=== PATIENT | female | born 2005 | race American Indian/Alaskan Native ===

== ENCOUNTER 2024-11-10 16:50 | Emergency (ER) | payer BC, SELFPAY ==
[2024-11-10 17:00] VITALS: BP 117/76; PULSE 77; RESP 16; TEMP 36.5; O2SAT 94; BMI 25.0
[2024-11-10 17:41] LABS: Appearance Urine Clear (Clear); Bilirubin Urine 1+ (Negative); Blood Urine Trace-intact (Negative); Color Urine Yellow (Yellow); Glucose Urine Negative (Negative); Ketones Urine 1+ (Negative); Leukocyte Esterase Urine Negative (Negative); Nitrite Urine Negative (Negative); Protein Urine 2+ (Negative); Specific Gravity Urine >= 1.030 (1.000-1.030)
[2024-11-10 17:48] LABS: RBC Urine 0-2 (0-2)
[2024-11-10 17:49] LABS: Bacteria Urine Moderate; Squamous Epithelial Cell Urine Moderate (None-Few)
--- OUTSIDE RECORDS SUMMARY | 2024-11-10 19:22 | XMS_ITS | Encounter Summary ---
Author Organization [facility] Address [address], [place] [address] Care Team Providers Care Supervisor Hospitality House Name Role Phone Deshawn Hart PA-C Primary Care Provider [phone] Reason for Visit * Reason Comments IUD Removal Yeast infections layo r since IUD was placed Encounter Details Date Type Department Care Team (Latest Contact Info) Description 10/09/2024 11:45 AM BENCH WORKER Office Visit [place] 1515 Obstetrics/Gynecolog y 1515 [facility]. [place], [place] [id number] Nancy Garces MD 15[address] [facility] [address] [place] [address] Encounter for IUD removal (Primary Dx); OCP (oral contraceptive pills) initiation Social History Tobacco Use Types Packs/Day Years Used Date Smoking Tobacco: Every Day Cigarettes Other - See comments Passive Smoke Exposure: Never Smokeless Tobacco: Never Tobacco Cessation:Ready to Q uit: Not Asked; Counseling Given: Not Answered Alcohol Use Standard Drinks/Week Comments Yes 0 (1 standard drink = 0.6 oz pur e alcohol) occ AUDIT-C Answer Date Recorded Q1: How often do you have a drink containing alc ohol? Never 03/19/2020 Average Number of Drinks Not on file 020 Frequency of Binge Drinking Not on file 03/06 Comments No Sex and Gender Information Value Date Recorded Sex Assigned at Female 08/16/2024 5:16 PM BENCH WORKER Legal Sex Female 8:05 PM CDT Gender Identity Female 08/16/2024 5:16 PM BENCH WORKER Sexual Orientation Straight 08/16/2024 5: 16 PM BENCH WORKER Occupation Industry Job Start Date Job End Date Student Not on file Not on file Not on file [employer] Not on file Not on file Not on file documented as of this encounter Last Filed Vital Signs Vital Sign Reading Time Taken Comments Blood Pressure 98/71 10/09/2024 11:42 AM BENCH WORKER Pulse 82 10/09/2024 11:42 AM BENCH WORKER Temperature - - Respiratory Rate - - Oxygen Saturation - - Inhaled Oxygen Concentration - - Weight 71.8 kg (158 lb 6.4 oz) 10/09/2024 11:42 AM BENCH WORKER Height - - Body Mass Index - - documented in this encounter Patient Instructions * Attachments The following attachments cannot be sent through Care Everywhere. * IUD (Intrauterine Device): Removal (Filipino) * Control Pills: General Info (Filipino) documented in this encounter Progress Notes * Nancy Garces MD - 10/09/2024 11:45 AM CST Chief complaint: IUD removal HPI: 19 y.o. female presents for IUD removal. She would like removed because she has had cramping and increased vaginal irritation since insertion. She wishes to try OCP for contraception. The procedure was explained and consent was obtained. OBJECTIVE BP 98/71 (BP Location: Right Arm, BP Cuff Size: Regular) Pulse 82 Wt 158 lb 6.4 oz (71.8 kg) LMP (LMP Unknown) No General: no apparent distress : external genitalia, urethral meatus, and perineum appear normal. Speculum was placed easily andthe IUD strings are easily visualized. The IUD strings were grasped with ring forceps and IUD was easily removed. The IUD was shown to the patient prior to being discarded. The speculum was removed. The patient tolerated the procedure well. Assessment: 1. 19 y.o. female here for IUD removal Plan: IUD was removed as described above. She tolerated this well. Wishes to try OCP for contraception. Pt can start the Wednesday after her menses. Back-up control discussed. Common SE OCP also discussed. Pt to call or return with any questions. ICD-10-CM 1. Encounter for IUD removal Z30.432 Remove Intrauterine Device [08865] 2. OCP (oral contraceptive pills) initiation Z30.011 drospirenone-ethinyl estradiol (ENRICO) 3-0.02 MGtablet H WORKER documented in this encounter Plan of Treatment Not on file documented as of this encounter Visit Diagnoses Diagnosis Encounter for IUD removal- Primary Encounter for removal of intrauterine contraceptive device OCP (oral contraceptive pills) initiation General counseling for prescription of oral contraceptives documented in this encounter Care Teams Supervisor Hospitality House Relationship Specialty Start Date End Date Deshawn Hart, PA-C [address] [place] [address] PCP - General 12/15/19 documented as of this encounter
--- OUTSIDE RECORDS SUMMARY | 2024-11-10 19:22 | XMS_ITS | Clinical Summary ---
Author Organization [facility] [facility] Address [address] [place] [address] Care Team Providers Care Panel Flow Machine Operator Name Role Phone Deshawn Hart Primary Care Provider [phone] Allergies Active Allergy Reactions Criticality Noted Date Comments [place]land And Derivatives Anaphylaxis High 07/09/2022 Oranges Gum Psegom-Qbvsit-Qmll-Alcohol *Unknown Unknown 03/07/2019 Peanut Anaphylaxis High 11/06/2004 Peanut Says if injested Peanuts Medications EPINEPHRINE 0.3 MG/0.3 ML (1:1,000) IM PEN INJECTOR PRN for allergic reaction Active MEDICATION ORDER COMPOSER Dad states child takes an anxiety medication Active Cetirizine (ZYRTEC) 10 mg Cap Take 10 mg by mouth once daily if needed. 1 Active mirtazapine (REMERON) 15 mg tablet Take 7.5 mg by mouth at bedtime. Active OMEPRAZOLE ORAL Take by mouth. Active CLONIDINE HCL ORAL Take by mouth. Active ondansetron (ZOFRAN ODT) 4 mg disintegrating tabletIndications: Urinary tract infection with hematuria, site unspecified,Nausea and vomiting, intractability of vomiting not specified, unspecified vomiting type Place 1 tablet on the tongue every 8 hours if needed for Nausea/Vomitin g. 12 tablet 9 Active omeprazole (PRILOSEC) 40 mg Delayed-Release capsule TK 1 C PO QD AC 4 9 Active omeprazole (PRILOSEC) 20 mg Delayed-Release capsule Take 20 mg by mouth. Active FLUoxetine (PROZAC) 40 mg capsule TK 1 C PO D 2 9 Active EPINEPHrine (EPIPEN) 0.3 mg/0.3 mL injection Inject 0.3 mg intramuscular. Active EPINEPHrine (EPIPEN JR) 0.15 mg/0.3 mL injection Inject 1 Dose intramuscular. 9 Active cloNIDine HCl (CATAPRES) 0.1 mg tablet 1 9 Active cloNIDine (NEXICLON XR) 0.1 mg extended release tablet 2 9 Active QUEtiapine (SEROQUEL XR) 200 mg Extended-Release tablet TK 1 T PO HS 2 9 Active QUEtiapine (SEROQUEL XR) 150 mg Tb24 Extended-Release tablet TK 1 T PO HS 0 9 Active QUEtiapine (SEROQUEL) 100 mg tablet TK 1 T PO HS 3 9 Active ISOtretinoin (ACCUTANE) 40 mg capsule Take 40 mg by mouth. Active AMNESTEEM 20 mg capsule TK ONE C PO ONCE A DAY WITH A MEAL 0 9 Active FLOVENT HFA 220 mcg/actuation inhaler SPRAY 4 PUFFS IN MOUTH AND SWALLOW ONCE D. NO EATING/DRINKIN G FOR 30 MINUTES. RINSE MOUTH WITH WATER AND SPIT OUT AFTER TAKING MEDICATION. 12 9 Active cyclobenzaprine (FLEXERIL) 5 mg tablet Take 5 mg by mouth. 9 Active cholecalciferol (VITAMIN D3) 50,000 unit capsule TK ONE C PO WEEKLY FOR 12 WEEKS 0 9 Active albuterol HFA 90 mcg/actuation inhaler Inhale 2 Puffs by mouth every 6 hours. Active acetaminophen (TYLENOL EXTRA STRGTH) 500 mg tablet Take 500 mg by mouth. 9 Active medication order composer Take 1 Cap by mouth. Active medication order composer Take 1 Cap by mouth. Active hydrOXYzine HCL (ATARAX) 25 mg tablet 1 tablet as needed 0 Active levETIRAcetam (KEPPRA) 250 mg tablet 250 mg. 0 Active melatonin 3 mg tablet Take 3 mg by mouth. Active Low-Ogestrel 0.3-30 mg-mcg tablet Take 1 Tablet by mouth once daily. 0 Active Active Problems No known active problems Encounters Date Type Department Care Team Description 10/16/2024 11:45 AM DISTILLERY WORKER GENERAL - 10/16/2024 1:21 PM DISTILLERY WORKER GENERAL Emergency [facility] [address] [facility] [place] [address] Gracie Machuca MD Dysuria (Primary Dx) Discharge Disposition: Home Self Care 10/16/2024 Travel from Last 3 Months Family History Medical History Relation Name Comments Good Health Father Good Health Mother Relation Name Status Comments Father Alive Mother Alive Social History Tobacco Use Types Packs/Day Years Used Date Smoking Tobacco: Never Smokeless Tobacco: Never Tobacco Cessation:Counseling Given: No Alcohol Use Standard Drinks/Week Comments Never 0 (1 standard drink = 0.6 oz pur e alcohol) Interpersonal Safety Answer Date Record ed Are you being hit, kicked, p ushed or yelled at (see row info)? No 10/16/2024 Interpersonal Safety Abuse 12 - 18 Not on file 10/16/2024 Interpersonal Safety Ambulatory Vulnerability No t on file 10/16/2024 Comments No Sex and Gender Information Value Date Recorded Sex Assigned at Not on file Legal Sex Female 5:29 AM DISTILLERY WORKER GENERAL Gender Identity Not on file Sexual Orientation Not on file Obstetrics History Last Filed Vital Signs Vital Sign Reading Time Taken Comments Blood Pressure 103/69 10/16/2024 1:13 PM DISTILLERY WORKER GENERAL Pulse 75 10/16/2024 1:13 PM DISTILLERY WORKER GENERAL Temperature 36.7 C (98 F) 10/16/2024 11:35 AM DISTILLERY WORKER GENERAL Respiratory Rate 18 10/16/2024 1:13 PM DISTILLERY WORKER GENERAL Oxygen Saturation 99% 10/16/2024 1:13 PM DISTILLERY WORKER GENERAL Inhaled Oxygen Concentration - - Weight 70.3 kg (155 lb) 10/16/2024 11:35 AM DISTILLERY WORKER GENERAL Height 165.1 cm (5' 5) 10/16/2024 11:35 AM DISTILLERY WORKER GENERAL Body Mass Index 25.79 10/16/2024 11:35 AM DISTILLERY WORKER GENERAL Plan of Treatment Health Maintenance Due Date Last Done Comments Tdap 2014 Depression screening for age 12+ 2015 HIV for age 15-65 2018 HPV series for age 9-26 (1 - 3-dose series) 2018 BMI (ht and wt on same day) for age 18+ 2021 Hepatitis C screening for ag e 18-79 2021 Tetanus booster 2023 Pap test for age 21-65 2024 COVID-19 vaccine series (2023- season) 2024 11/06/2021, 12/13/2020, 11/22/2020 Influenza for age 9-49 05/07/2024 Meningococcal series for age 11-21 Aged Out No longer eligible b ased on patient's age to complete this topic Pneumococcal series for age 6-49 Aged Out No longer eligible b ased on patient's age to complete this topic Procedures Procedure Name Priority Date/Time Associated Diagnosis Comments URINE CULTURE AB 10/16/2024 12:48 PM DISTILLERY WORKER GENERAL URINALYSIS MICROSCOPIC STAT 10/16/2024 12:48 PM DISTILLERY WORKER GENERAL URINE STAT 10/16/2024 12:48 PM DISTILLERY WORKER GENERAL UA W/ SEDIMENT EXAM REFLEXED PER CRITERIA STAT 10/16/2024 12:48 PM DISTILLERY WORKER GENERAL TRICHOMONAS, KATI, AND BACTERIAL VAGINOSIS BY MACK STAT 10/16/2024 12:11 PM DISTILLERY WORKER GENERAL from Last 3 Months Results * URINALYSIS MICROSCOPIC (10/16/2024 12:48 PM DISTILLERY WORKER GENERAL) RBC 0-2 0-2, None Seen /HPF 10/16/2024 1:14 PM DISTILLERY WORKER GENERAL [facility] WBC 0-2 0-2, 3-5, None Seen /HPF 10/16/2024 1:14 PM DISTILLERY WORKER GENERAL [facility] BACTERIA Few None Seen, Rare, Few Bacteria/H PF 10/16/2024 1:14 PM DISTILLERY WORKER GENERAL [facility] EPITHELIAL CELLS Few None Seen, Few Epi/HPF 10/16/2024 1:14 PM DISTILLERY WORKER GENERAL [facility] Mucus Present 10/16/2024 1:14 PM DISTILLERY WORKER GENERAL [facility] Urine URINE SPECIMEN / Unknown Non-Blood / Unknown 10/16/2024 12:48 PM DISTILLERY WORKER GENERAL 10/16/2024 1:00 PM DISTILLERY WORKER GENERAL us Gracie Machuca MD URINE Final Result [facility] [address] [place] [address] * URINE CULTURE (10/16/2024 12:48 PM DISTILLERY WORKER GENERAL) CULTURE No growth (<1,000 CFU/mL) 10/17/2024 7:34 PM DISTILLERY WORKER GENERAL [facility] Urine URINE SPECIMEN / Unknown Non-Blood / Unknown 10/16/2024 12:48 PM DISTILLERY WORKER GENERAL 10/16/2024 1:00 PM DISTILLERY WORKER GENERAL us Gracie Machuca MD MICROBIOLOGY Final Result Performing Organization Address City/[facility]/ZIP Co de Phone Number [facility] [address] [place] [address], [place] * (ABNORMAL) UA W/ SEDIMENT EXAM REFLEXED PER CRITERIA (10/16/2024 12:48 PM DISTILLERY WORKER GENERAL) COLOR Yellow Yellow Color 10/16/2024 1:11 PM DISTILLERY WORKER GENERAL [facility] CLARITY Clear Clear Clarity 10/16/2024 1:11 PM DISTILLERY WORKER GENERAL [facility] SPECIFIC GRAVITY,URINE 1.020 1.010, 1.015, 1.020, 1.025 10/16/2024 1:11 PM [facility] PH,URINE 6.5 6.0, 7.0, 8.0, 5.5, 6.5, 7.5, 8.5 10/16/2024 1:11 PM DISTILLERY WORKER GENERAL [facility] UROBILINOGEN,Q UALITATIVE Normal Normal EU/dl 10/16/2024 1:11 PM [facility] PROTEIN, URINE Trace(A) Negative mg/dL 10/16/2024 1:11 PM [facility] GLUCOSE, URINE Negative Negative mg/dL 10/16/2024 1:11 PM [facility] KETONES,URINE Trace(A) Negative mg/dL 10/16/2024 1:11 PM [facility] BILIRUBIN,URIN E Negative Negative 10/16/2024 1:11 PM DISTILLERY WORKER GENERAL [facility] OCCULT BLOOD,URINE Trace(A) Negative 10/16/2024 1:11 PM DISTILLERY WORKER GENERAL [facility] NITRITE Negative Negative 10/16/2024 1:11 PM DISTILLERY WORKER GENERAL [facility] LEUKOCYTE ESTERASE Negative Negative 10/16/2024 1:11 PM DISTILLERY WORKER GENERAL [facility] Urine URINE SPECIMEN / Unknown Non-Blood / Unknown 10/16/2024 12:48 PM DISTILLERY WORKER GENERAL 10/16/2024 1:00 PM DISTILLERY WORKER GENERAL Gracie Machuca MD URINE Final Result Performing Organization Address [facility]/[place] [address] * URINE (10/16/2024 12:48 PM DISTILLERY WORKER GENERAL) ,URIN E Negative Negative 10/16/2024 1:10 PM DISTILLERY WORKER GENERAL [facility] Urine URINE SPECIMEN / Unknown Non-Blood / Unknown 10/16/2024 12:48 PM DISTILLERY WORKER GENERAL 10/16/2024 1:00 PM DISTILLERY WORKER GENERAL Gracie Machuca MD URINE Final Result Performing Organization Address [facility]/[place] [address] * TRICHOMONAS, KATI, AND BACTERIAL VAGINOSIS BY MACK (10/16/2024 12:11 PM DISTILLERY WORKER GENERAL) KATI SPECIES Negative Negative 1:49 AM DISTILLERY WORKER GENERAL [facility] KATI GLABRATA Negative Negative 10/17/2024 1:49 AM DISTILLERY WORKER GENERAL [facility] TRICHOMONAS VVA Negative Negative 1:49 AM DISTILLERY WORKER GENERAL [facility] BACTERIAL VAGINOSIS Negative Negative 10/17/2024 1:49 AM DISTILLERY WORKER GENERAL [facility] Other VAGINAL SWAB / Unknown Non-Blood / Unknown 10/16/2024 12:11 PM DISTILLERY WORKER GENERAL 10/16/2024 12:16 PM DISTILLERY WORKER GENERAL us Gracie Machuca MD MICROBIOLOGY Final Result [facility] [address] [place] [address], from Last 3 Months Insurance [place] Care Teams Panel Flow Machine Operator Relationship Specialty Start Date End Date Deshawn Hart PA [address] [place], [place] [id number] PCP - General Physician Canal Structure Operator 07/14/22
--- OUTSIDE RECORDS SUMMARY | 2024-11-10 19:22 | XMS_ITS | Encounter Summary ---
Author Organization [facility] Address [address] [place] [address] Care Team Providers Care Lacquer Polisher Name Role Phone Jaki Madsen CURTIS Primary Care Provider [phone] Deshawn Hart PA-C Unavailable [phone] Benita Alston PhD Unavailable [phone] Kimberli Trevizo FORESTRY SUPPORT SPECIALIST Unavailable [phone] Shivani Batista MD Unavailable [phone] Reddy Lamb MD Unavailable [phone] Lisette Bettencourt [facility] Unavailable + [phone] Deshawn Hart PA-C Primary Care Provider [phone] Reddy Lamb MD Unavailable [phone] Reason for Visit * Reason Onset Date Comments MH/CD Inpatient 09/07/2019 Encounter Details Date Type Department Care Team ([facility] st Contact Info) Description 09/07/2019 Telephone [facility] Behavioral Health Intake [address] [place] [phone] Generic, Behavioral Intake, MH/CD Inpatient Social History Tobacco Use Types Packs/Day Years Used Date Smoking Tobacco: Light Smoker Vaping Device Smokeless Tobacco: Never Alcohol Use Standard Drinks/Week Comments No 0 (1 standard drink = 0.6 oz pur e alcohol) Comments No Sex and Gender Information Value Date Recorded Sex Assigned at Not on file Legal Sex Female 4:54 AM PUPPET ENGINEER Gender Identity Not on file Sexual Orientation Not on file documented as of this encounter Miscellaneous Notes * Telephone Encounter - Richard Sosa - 09/07/2019 1:42 AM CST S: called about 14 yr old male in [facility] ED for SI B: Per HPI: 14 year old female who presents suicidal after an attempted a drug overdose. The patient has a history of cutting, though none today, and has been hospitalized for depression with suicidal ideation about a year ago. She also drinks but has not had alcohol for the past couple weeks. The patient has been taking her mom's prescription oxycodone, migraine, and other pain pills for the past couple days, developing auditory hallucinations. This pill use continued today. She then sent her mother a picture of a suicide note around 2100 tonight, after which she took a handful of Tylenol and drank a full bottle of children's cough syrup. Her father caught her doing this. Here in the Emergency Department, the patient feels confused and nauseous, though the sensation of heart-racing is bothering her the most. She states that her intentions were to be happy and , as September is usually a difficult time for the patient due to past events. She denies vomiting or chance of . A: vol/ parents will sign in R: double end tenon operator provider accepted admission Unit 6[address] / [facility] Unit notified ED given disposition ET ENGINEER documented in this encounter Plan of Treatment Not on file documented as of this encounter Visit Diagnoses Not on filedocumented in this encounter Additional Health Concerns Infection Onset Date Last Indicated Resolved Time Rule Out COVID-19 03/11/2022 03/11/2022 03/11/2022 1:41 PM CDT documented as of this encounter Care Teams Lacquer Polisher Relationship Specialty Start Date End Date Jaki Madsen CNP [facility] [place] [address] [place] [address] PCP - General Nurse Practitioner 10/04/17 11/22/19 Deshawn Hart PA-C [facility] [address] [place], [place] [address] PCP - General 11/23/19 Deshawn Hart PA-C [facility] [address] [place], [place] [address] Physician 10/06/17 Benita Alston, PhD [address] [place] [phone] Psychologist Psychology 07/05/19 Kimberli Trevizo, FORESTRY SUPPORT SPECIALIST [address] [address] Licensed Mental Health 07/05/19 Shivani Batista MD [address] [place] [address] Resident Student in organized health care education/training program 07/05/19 Reddy Lamb MD [address] [place] [id number] pipe caulker 07/05/19 Lisette Bettencourt, [facility] [address] [place] [address] [phone] Pharmacist Pharmacist 07/05/19 Reddy Lamb MD [address] [place] [phone] Assigned Behavioral Health Provider 06/28/20 02/08/21 documented as of this encounter
--- OUTSIDE RECORDS SUMMARY | 2024-11-10 19:22 | XMS_ITS | Encounter Summary ---
Author Organization [facility] Address [address] [place] [address] Care Team Providers Care Horse Racing Manager Name Role Phone Jaki Madsen CURTIS Primary Care Provider [phone] Deshawn Hart PA-C Unavailable [phone] Benita Alston PhD Unavailable [phone] Kimberli Trevizo CENTERPUNCHER Unavailable [phone] Shivani Batista MD Unavailable [phone] Reddy Lamb MD Unavailable [phone] Lisette Bettencourt [facility] Unavailable + [phone] Deshawn Hart PA-C Primary Care Provider [phone] Reddy Lamb MD Unavailable [phone] Reason for Visit * Reason Onset Date Comments Outpatient 09/08/2019 [place] [facility] Encounter Details Date Type Department Care Team ([facility] Contact Info) Description 09/08/2019 Telephone [facility] Behavioral Health Intake [address] [place] [phone] Generic, Behavioral IntakeMD Outpatient ([place] [facility]) Social History Tobacco Use Types Packs/Day Years Used Date Smoking Tobacco: Light Smoker Vaping Device Smokeless Tobacco: Never Alcohol Use Standard Drinks/Week Comments No 0 (1 standard drink = 0.6 oz pur e alcohol) Comments No Sex and Gender Information Value Date Recorded Sex Assigned at Not on file Legal Sex Female 4:54 AM ACID BLOWER Gender Identity Not on file Sexual Orientation Not on file documented as of this encounter Miscellaneous Notes * Telephone Encounter - Debra Torres LICSW - 10/30/2019 10:23 AM ACID BLOWER ----- Message from Claire Pierson sent at 10/30/2019 9:51 AM ACID BLOWER ----- Sapphire Ortega is out of appointments for [facility]. Thanks Claire BLOWER * Telephone Encounter - Mary Manzo - 09/08/2019 4:42 PM CST Received psych consult referral to [facility]. [place] [id number]. BLOWER documented in this encounter Plan of Treatment Not on file documented as of this encounter Visit Diagnoses Not on filedocumented in this encounter Additional Health Concerns Infection Onset Date Last Indicated Resolved Time Rule Out COVID-19 03/11/2022 03/11/2022 03/11/2022 1:41 PM CDT documented as of this encounter Care Teams Horse Racing Manager Relationship Specialty Start Date End Date Jaki Madsen CNP [facility] [address] [place] [address] PCP - General Nurse Practitioner 10/04/17 11/22/[address]ha[address] PA-C [facility] [address] [place], [place] [address] PCP - General 11/23/19 Deshawn Hart PA-C [facility] [address] [place], [place] [address] Physician 10/06/17 Benita Alston, PhD [address] [place] [address] Psychologist Psychology 07/05/19 Kimberli Trevizo, CENTERPUNCHER [address] [place] [address] Licensed Mental Health 07/05/19 Shivani Batista MD [address] [place] [address] Resident Student in [facility] health care education/training program 07/05/19 Reddy Lamb MD [address] [place] [address] horse rancher 07/05/19 Lisette Bettencourt, [facility] [address] [place] [address] Pharmacist Pharmacist 07/05/19 Reddy Lamb MD [address] [place] [address] [phone] Assigned Behavioral Health Provider 06/28/20 02/08/21 documented as of this encounter
--- OUTSIDE RECORDS SUMMARY | 2024-11-10 19:22 | XMS_ITS | Encounter Summary ---
Author Organization [place] Address [address] [place] [address] Care Team Providers Care Analysis Intern Name Role Phone Jaki Madsen CURTIS Primary Care Provider [phone] Deshawn Hart PA-C Unavailable [phone] Benita Alston PhD Unavailable [phone] Kimberli Trevizo SCHOOL PROGRAM DIRECTOR Unavailable [phone] Shivani Batista MD Unavailable [phone] Reddy Lamb MD Unavailable [phone] Lisette Bettencourt [facility] Unavailable + [phone] Deshawn Hart PA-C Primary Care Provider [phone] Reddy Lamb MD Unavailable [phone] Reason for Visit * Reason Onset Date Comments MH/CD Inpatient 11/04/2019 Encounter Details Date Type Department Care Team ([facility] st Contact Info) Description 11/04/2019 Telephone [facility] Behavioral Health Intake [address] [place] [address] Generic, Behavioral Intake, MH/CD Inpatient Social History Tobacco Use Types Packs/Day Years Used Date Smoking Tobacco: Former Vaping Device Smokeless Tobacco: Never Alcohol Use Standard Drinks/Week Comments No 0 (1 standard drink = 0.6 oz pur e alcohol) PHQ-2 Answer Date Recorded PHQ-2 Score 2 09/15/2019 Comments No Sex and Gender Information Value Date Recorded Sex Assigned at Not on file Legal Sex Female 4:54 AM ENHANCED ENVIRONMENTAL OPERATOR Gender Identity Not on file Sexual Orientation Not on file documented as of this encounter Miscellaneous Notes * Telephone Encounter - Kimberli Sotelo - 11/04/2019 8:20 AM CST R: [facility] reviewing @ 8:20 am Awaiting response @ 10:27 am [facility] no longer can review 7ITC/Fam Notified unit @ 11:37 am Unit will call back Unit aware of admit Disposition @ 12:19 pm NCED ENVIRONMENTAL OPERATOR NCED ENVIRONMENTAL OPERATOR documented in this encounter Plan of Treatment Not on file documented as of this encounter Visit Diagnoses Not on filedocumented in this encounter Additional Health Concerns Infection Onset Date Last Indicated Resolved Time Rule Out COVID-03/11/2022 03/11/2022 03/11/2022 1:41 PM CDT Assessment Noted Time PHQ-9 Depression Total Score: 11 020 11:53 AM ENHANCED ENVIRONMENTAL OPERATOR documented as of this encounter Care Teams Analysis Intern Relationship Specialty Start Date End Date Jaki Madsen CNP [facility] [address] [place] [address] PCP - General Nurse Practitioner 10/04/17 11/22/19 Deshawn Hart PA-C [facility] [address] [place] [address] PCP - General 11/23/19 Deshawn Hart PA-C [facility] [address] [place] [address] Physician 10/06/17 Benita Alston, PhD [address] [place] [phone] Psychologist Psychology 07/05/19 Kimberli Trevizo, SCHOOL PROGRAM DIRECTOR [address] [place] [address] Licensed Mental Health 07/05/19 Shivani Batista MD [address] [place] [address] Resident Student in [employer] health care education/training program 07/05/19 Reddy Lamb MD [address] [place] [address] [id number] economic specialist 07/05/19 Lisette Bettencourt, [facility] [address] [place] [address] Pharmacist Pharmacist 07/05/19 Reddy Lamb MD [address] [place] [address] [phone] Assigned Behavioral Health Provider 06/28/20 02/08/21 documented as of this encounter
--- OUTSIDE RECORDS SUMMARY | 2024-11-10 19:22 | XMS_ITS | Encounter Summary ---
Author Organization [place] Address [address] [place] [address]. [place] [address] Care Team Providers Care Vehicle Detailer Name Role Phone [facility] [place] Primary Care Provider [phone] Jaki Madsen CNP Primary Care Provider [phone] Deshawn Hart PA-C Unavailable [phone] Benita Alston PhD Unavailable [phone] Kimberli Trevizo ANIMAL DOCTOR Unavailable [phone] Shivani Batista MD Unavailable [phone] Reddy Lamb MD Unavailable [phone] Lisette Bettencourt [facility] Unavailable + [phone] Deshawn Hart PA-C Primary Care Provider [phone] Reddy Lamb MD Unavailable [phone] Reason for Visit * Reason Onset Date Comments MH/CD Inpatient 10/02/2017 Encounter Details Date Type Department Care Team ([facility] st Contact Info) Description 10/02/2017 Telephone [facility] Behavioral Health Intake [address] [place] [address] Generic, Behavioral Intake, MH/CD Inpatient Social History Tobacco Use Types Packs/Day Years Used Date Smoking Tobacco: Never Smokeless Tobacco: Never Alcohol Use Standard Drinks/Week Comments No 0 (1 standard drink = 0.6 oz pur e alcohol) Comments No Sex and Gender Information Value Date Recorded Sex Assigned at Not on file Legal Sex Female 4:54 AM BOOMBOAT OPERATOR Gender Identity Not on file Sexual Orientation Not on file documented as of this encounter Miscellaneous Notes * Telephone Encounter - Vincenzo Loera - 10/02/2017 10:41 PM BOOMBOAT OPERATOR S: [facility] called at [address] a 12 y/o female for inpatient mental health treatment. B: Pt presents to the ED with SI and a plan to cut herself. Pt was home alone. She posted some things on [employer] Chat showing a safety deposit boxes custodian, then was Face-timing some friends holding a safety deposit boxes custodian saying she was going to kill herself. Friend called police who came to the house, talked to pt, then calledfamily who came home. Mother sated pt has been doing ok. She has always struggled with depression and mental illness, and has been in and out of programs. She stated pt is struggling because of step g-pa's suicide about a year ago. Pt has been medically cleared. Labs pending. A: Mom supports inpatient admission. R: 7A/Arley. Dr. Morillo approved admission at 2246. Unit notified at 2300. ED notified at 2303. BOAT OPERATOR documented in this encounter Plan of Treatment Not on file documented as of this encounter Visit Diagnoses Not on filedocumented in this encounter Additional Health Concerns Infection Onset Date Last Indicated Resolved Time Rule Out COVID-19 03/11/2022 03/11/2022 03/11/2022 1:41 PM CDT documented as of this encounter Care Teams Vehicle Detailer Relationship Specialty Start Date End Date [facility], [facility] [address] [address] PCP - General 08/16/12 10/03/17 Jaki Madsen CNP [facility] [address] [place] [address] PCP - General Nurse Practitioner 10/04/17 11/22/19 Deshawn Hart PA-C [facility] [address] [place], [place] [id number] PCP - General 11/23/19 Deshawn Hart PA-C [facility] [address] [place] [address] Physician 10/06/17 Benita Alston, PhD [address] [place] [address] [phone] Psychologist Psychology 07/05/19 Kimberli Trevizo, ANIMAL DOCTOR [address] [place] [address] Licensed Mental Health 07/05/19 Shivani Batista MD [address] [place] [address] Resident Student in [facility] health care education/training program 07/05/19 Reddy Lamb MD [address] [place] [address] [phone] rn ante partum 07/05/19 Lisette Bettencourt, [facility] [address] [place] [address] Pharmacist Pharmacist 07/05/19 Reddy Lamb MD [address] [place] [address] [phone] Assigned Behavioral Health Provider 06/28/20 02/08/21 documented as of this encounter
--- OUTSIDE RECORDS SUMMARY | 2024-11-10 19:23 | XMS_ITS | Clinical Summary ---
Author Organization [facility] Address [address], [place] [address] Care Team Providers Care Drilling Rig Operator Name Role Phone Deshawn Hart PA-C Primary Care Provider [phone] Source Comments You are receiving this document as you are listed as the primary care provider,follow-up provider, or the patient has been referred to you for consultation.This is in compliance with the Medicare and[facility] EHR Incentive Program,which states Providers who transition their patient to another setting of careor provider of care or refers their patient to another provider of care shouldprovide summary care record for each transition of care or referral. Mobile Action Allergies Active Allergy Reactions Criticality Noted Date Comments Adhesive 03/07/2019 Patriot Anaphylaxis High 07/09/2022 Egg Solids, Whole Anaphylaxis High 07/03/2007 Nuts Anaphylaxis High 11/06/2004 Peanut Medications EPINEPHrine (AKA EPIPEN JR.) 0.15 MG/0.3ML injection Inject 1 Dose into the muscle as needed. LW Comment:Failed 05/08/09 No refills LW Addl Instr:January repeat. Indicated for: Acute Allergic Reaction 3 009 Active ALBUterol sulfate HFA (PROVENTIL HFA) 108 (90 Base) MCG/ACT inhaler Inhale 2 Puffs every 6 hours. Active budesonide, INHALATION, (PULMICORT) 1 MG/2ML suspension 6 019 Active QUEtiapine (SEROQUEL XR) 150 MG 24 hour release tablet 2 Tablets (300 mg). 1 Active cyclobenzaprine (FLEXERIL) 5 MG tablet Take 1 Tablet (5 mg) by mouth. Active traZODone (DESYREL) 50 MG tablet Active divalproex (DEPAKOTE) 250 MG delayed release tablet Take 1 Tablet (250 mg) by mouth two times a day. Active gabapentin (NEURONTIN) 100 MG capsule Take 1 Capsule (100 mg) by mouth as needed. Active levETIRAcetam (KEPPRA) 250 MG tablet Take 2 Tablets (500 mg) by mouth two times a day. Active TRINTELLIX 5 MG tablet Take 1 Tablet (5 mg) by mouth daily. Active docusate sodium (COLACE) 100 MG capsule Take 1 Capsule (100 mg) by mouth two times a day. Active omeprazole (PRILOSEC) 20 MG capsule Take 1 Capsule (20 mg) by mouth daily. Take 1 hour before a meal. Active levonorgestrel (KYLEENA) 19.5 MG IUDIndications:E ncounter for insertion of intrauterine contraceptive device 1 Each by Intrauterine route continuous. 2028 Active fexofenadine (CHRISTINE) 180 MG tablet Take 1 Tablet (180 mg) by mouth daily. Active fluticasone HFA 220 mcg/puff inhaler Inhale. Active QUEtiapine (SEROQUEL XR) 300 MG 24 hour release tablet Take 1 Tablet (300 mg) by mouth daily at bedtime. Active drospirenone-eth inyl estradiol (ENRICO) 3-0.02 MG tabletIndication s:OCP (oral contraceptive pills) initiation Take 1 Tablet by mouth daily. 84 Tablet 3 025 2025 Active etonogestrel (NEXPLANON) 68 MG implantIndicatio ns:Insertion of implantable subdermal contraceptive Inject 68 mg subcutaneously . 1 Each 019 2020 Discontinued Active Problems Problem Noted Date Diagnosed Date History of substance use 03/20/2024 CHRISTOPHE (generalized anxiety disorder) 03/20/2024 MDD (major depressive disorder) 03/20/2024 Seizures 03/20/2024 Dysmenorrhea 03/20/2024 Encounters Date Type Department Care Team Description 10/09/2024 11:45 AM WET CHEMISTRY ANALYST Office Visit [facility] Obstetrics/Gynecolog y [address] [address] Nancy Garces MD Encounter for IUD removal (Primary Dx); OCP (oral contraceptive pills) initiation from Last 3 Months Immunizations Immunization Administration Dates Next Due 4vHPV (Gardasil) 04/05/2015,06/22/2014, 4 DTaP 05/04/2008 [id number] (Pediarix) 01/30/2004,2003,1 DTaP/Hib 09/10/2004 Flu Vac (3+ yrs) 06/21/2015, 4,09/19/2013,2011,06/18/2011,10/16/2010,06/07/2008 HepA Ped/Adol (1-18 yrs) 01/10/2010,02/06/2009 Hib (ActHIB) 01/30/2004,2003,2003 Influenza IIV4 (Quadrivalent ) 0.5mL (78041) 06/16/2022,07/11/2021,09/05/2019,2016 Influenza, Unspecified Formulation 06/16/2007,,07/24/2005 MCV4 (Menactra) 10/31/2019,06/22/2014 MMR 05/04/2008,09/10/2004 Pfizer Monovalent 12+ Purple Top 11/06/2021,04/0 05/2021,11/22/2020 Pneumococcal 7, PED 09/10/2004,2003,2002 Polio, Unspecified Formulation 05/04/2008 Tdap 06/05/2024,03/05/2014 Varicella 05/04/2008,09/10/2004 Family History Medical History Relation Name Comments No Known Problems Father Hypertension Mother No Known Problems Brother 1 No Known Problems Brother 2 No Known Problems Brother 3 No Known Problems Brother 4 Heart Failure Maternal Grandfather Diabetes Maternal Grandmother No Known Problems Paternal Grandfather No Known Problems Paternal Grandmother No Known Problems Sister 1 No Known Problems Sister 2 Relation Name Status Comments Father Alive Mother Alive Brother 1 Alive Brother 2 Alive Brother 3 Alive Brother 4 Alive Maternal Grandfather Alive Maternal Grandmother Alive Paternal Grandfather Alive Paternal Grandmother Alive Sister 1 Alive Sister 2 Alive Social History Tobacco Use Types Packs/Day [...] Sex Assigned at Female 08/16/2024 5:16 PM WET CHEMISTRY ANALYST Legal Sex Female 8:05 PM CDT Gender Identity Female 08/16/2024 5:16 PM WET CHEMISTRY ANALYST Sexual Orientation Straight 08/16/2024 5: 16 PM WET CHEMISTRY ANALYST Occupation Industry Job Start Date Job End Date Student Not on file Not on file Not on file [employer] Not on file Not on file Not on file Last Filed Vital Signs Vital Sign Reading Time Taken Comments Blood Pressure 98/71 10/09/2024 11:42 AM WET CHEMISTRY ANALYST Pulse 82 10/09/2024 11:42 AM WET CHEMISTRY ANALYST Temperature 36.7 C (98 F) 01/07/2020 5:39 PM CDT Respiratory Rate 18 01/07/2020 8:00 PM CDT Oxygen Saturation 97% 01/07/2020 8:00 PM CDT Inhaled Oxygen Concentration - - Weight 71.8 kg (158 lb 6.4 oz) 10/09/2024 11:42 AM WET CHEMISTRY ANALYST Height 161.3 cm (5' 3.5) 02/23/2019 10:33 AM CD T Body Mass Index - - Plan of Treatment Health Maintenance Due Date Last Done Comments Hep C Screening (Preventive Services) 2003 MenB Immunization Discussion 2003 HIV Screening (Preventive Services) 2019 Adult Preventive Visit 2021 Pneumococcal (1 of 2 - PCV) 04/18/202201/2005, 2003, 2003 COVID-19 Vaccine (4 - 2023-2 5 season) 2024 11/06/2021, 12/13/2020, 11/22/2020 Influenza (#1) 2024 06/16/2022, 0 01/2021, 09/05/2019, Additional history exists Chlamydia 04/07/2025 04/07/2024, 11/05, 10/03/2017 Cervical Cancer Screening 06/05/2027 06/05/2024 DTaP/Tdap/Td (8 - Tdap) 06/05/2034 06/05/20 24, 03/05/2014, 05/04/2008, Additional history exists Zoster/Shingles (1 of 2) 2053 HepB Completed 01/30/2004, 08/06, 2003 Hib Completed 09/10/2004, 01/05, 2003, Additional history exists IPV (Polio) Completed 05/04/2008, 01/05, 2003, Additional history exists Varicella Completed 05/04/2008, 09/10/2004 HepA Completed 01/10/2010, 02/06/2009 HPV Vaccine Completed 04/05/2015, 06/06, 03/05/2014 MCV4 Completed 10/31/2019, 06/22/2014 Procedures Procedure Name Priority Date/Time Associated Diagnosis Comments CYTOLOGY (PAP) Routine 06/05/2024 11:38 AM CDT Screening for malignant neoplasm of cervix CHLAMYDIA & GC (14 YEARS & OLDER) Routine 04/07/2024 2:37 PM CDT Encounter for insertion of intrauterine contraceptive device Screening examination for venereal disease Special screening examination for viral disease from Last 3 Months or Most Recently Relevant to Health Maintenance Results * PAP Test (06/05/2024 11:38 AM CDT) Case Report Pap Case: [id number] Authorizing Provider: Lanette May MD Collected: 06/05/2024 1138 Ordering Location: [place] [address] Received: 06/05/2024 1250 Obstetrics/Gynec ology First Screen: Vivian Briones CT (ASCP) Specimen: Pap Test, Routine, Cervix/Endocervix 06/28/2024 12:34 PM CDT [facility] Pap Specimen Adequacy Satisfactory for evaluation, endocervical/saxena sformation zone component absent. 06/28/2024 12:34 PM CDT [facility] Pap Interpretation (NILM) Negative for intraepithelial lesion or malignancy. 06/28/2024 12:34 PM CDT [facility] at 1234 CDT Pap Disclaimer The Pap test is a screening test to aid in the detection of cervical and vaginal cancers and their precursor lesions. It is not a diagnostic procedure and should not be used as the sole means of detecting malignancy. Both false-positive and false-negative results may occur. 06/28/2024 12:34 PM CDT [facility] Gross Description The specimen is received in SurePath fixative and properly labeled. 1 Pap-stained SurePath slide is prepared. 06/28/2024 12:34 PM CDT [facility] Embedded Images 12:34 PM CDT [facility] Other Specimen Type ENTIRE ENDOCERVIX / Unknown 06/05/2024 11:38 AM CDT 06/05/2024 12:50 PM CDT Comment:LMP: Patient's last menstrual period was 03/20/2024. Lanette May MD LAB PATHOLOGY Final Result [facility] [address] [place], [place] [address] * Chlamydia & GC (14 Years and Older): Vagina (04/07/2024 2:37 PM CDT) Chlamydia Trachomatis STD Not Detected Not Detected 04/08/2024 12:48 PM CDT [facility] N. gonorrhoeae STD Not Detected Not Detected 04/08/2024 12:48 PM CDT [facility] Swab STD SPECIMEN FROM VAGINA / Unknown Non-blood Collection / Unknown 04/07/2024 2:37 PM CDT 04/07/2024 2:49 PM CDT Narrative [facility] - 04/08/2024 12:48 PM CDT Test performed by Polytechn[employer] Registrar Mediated Amplification (TMA). us Lanette May MD LAB_1 Final Result [facility] [address] [address], [place] from Last 3 Months or Most Recently Relevant to Health Maintenance Insurance [facility] [employer] Care Teams Drilling Rig Operator Relationship Specialty Start Date End Date Deshawn Hart PA-C [address] [place] [address] PCP - General 12/15/19
--- OUTSIDE RECORDS SUMMARY | 2024-11-10 19:23 | XMS_ITS | Clinical Summary ---
Author Organization [facility] Address [address] [place] [id number] Care Team Providers Care Air Sampler Name Role Phone Deshawn Hart PA-C Unavailable [phone] Benita Alston PhD Unavailable [phone] Kimberli Trevizo [facility] Unavailable [phone] Shivani Batista MD Unavailable [phone] Reddy Lamb MD Unavailable [phone] Lisette Bettencourt [facility] Unavailable + [phone] Deshawn Hart PA-C Primary Care Provider [phone] Allergies Active Allergy Reactions Criticality Noted Date Comments Nuts Anaphylaxis High 11/06/2004 Says if injested Peanuts [place] 07/09/2022 Medications * This document contains information received from the source organization and may not represent a complete record from that organization. FLOVENT HFA 220 MCG/ACT inhaler SPRAY 4 PUFFS IN MOUTH AND SWALLOW ONCE D. NO EATING/DRINKING FOR 30 MINUTES. RINSE MOUTH WITH WATER AND SPIT OUT AFTER TAKING MEDICATION. 12 9 Active etonogestrel (IMPLANON/NEXPLA NON) 68 MG IMPL Inject 68 mg Subcutaneous 9 Active albuterol (PROAIR HFA/PROVENTIL HFA/VENTOLIN HFA) 108 (90 Base) MCG/ACT inhaler Inhale 2 puffs into the lungs every 6 hours as needed Active omeprazole (PRILOSEC) [address] capsuleIndicatio ns:Gastroesophag eal reflux disease with esophagitis Take 1 capsule (40 mg) by mouth 2 times daily 30 capsule 0 Active cetirizine (ZYRTEC) 10 MG tabletIndication s:Uncomplicated asthma, unspecified asthma severity, unspecified whether persistent Take 1 tablet (10 mg) by mouth At Bedtime 30 tablet 0 Active fluticasone (FLONASE) 50 MCG/ACT nasal sprayIndications :Uncomplicated asthma, unspecified asthma severity, unspecified whether persistent Taylor 1 spray into both nostrils daily 9.9 mL 0 Active polyethylene glycol (MIRALAX) packetIndication s:Constipation, unspecified constipation type Take 17 g by mouth daily 30 packet 0 Active EPINEPHrine (ANY BX GENERIC EQUIV) 0.3 MG/0.3ML injection 2-packIndication s:Anaphylaxis Inject 0.3 mLs (0.3 mg) into the muscle as needed for anaphylaxis 1 each 0 Active QUEtiapine (SEROQUEL XR) 150 MG TB24 24 hr tabletIndication s:MDD (major depressive disorder), recurrent episode, moderate (H),PTSD (post-traumatic stress disorder) Take 1 tablet (150 mg) by mouth At Bedtime 60 tablet 0 Active prazosin (MINIPRESS) 500 MCG capsuleIndicatio ns:PTSD (post-traumatic stress disorder) Take 1 capsule (0.5 mg) by mouth 2 times daily This product only available from a Compounding Pharmacy. 120 capsule 0 Active traZODone (DESYREL) 50 MG tabletIndication s:Insomnia, unspecified type Take 0.5 tablets (25 mg) by mouth At Bedtime 30 tablet 0 Active Additional Information Patient taking differently:25 mg Oral AT BEDTIME,Takes 150mg, Reported on 07/07/2022 FLUoxetine (PROZAC) 40 MG capsuleIndicatio ns:MDD (major depressive disorder), recurrent episode, moderate (H) Take 1 capsule (40 mg) by mouth daily For more refills,schedule an appointment at [phone] 30 capsule 1 Active divalproex sodium delayed-release (DEPAKOTE) [address] tablet 2 Active levETIRAcetam (KEPPRA) 250 MG tablet 2 Active Active Problems Problem Noted Date Diagnosed Date Suicidal ideation 11/24/2019 Suicide attempt 11/04/2019 MDD (major depressive disord er), recurrent episode, moderate 09/15/2019 PTSD (post-traumatic stress disorder) 09/10/2019 Current moderate episode of major depressive disorder without prior episode 09/10/2019 Suicide attempt by drug ingestion 09/07/2019 Intractable vomiting with nausea 03/04/2019 Eating disorder 03/04/2019 Dysmenorrhea in adolescent 03/03/2019 Resolved Problems Problem Noted Date Diagnosed Date Resolved Date Suicidal ideation 10/03/2017 03/03/2019 Immunizations Name Administration Dates Next Due Influenza Vaccine >6 months,quad, PF 09/05/2019 Social History Tobacco Use Types Packs/Day Years Used Date Smoking Tobacco: Former Vaping Device Smokeless Tobacco: Current Tobacco Cessation:Ready to Q uit: Not Asked; Counseling Given: Not Answered Comments:Vaping Alcohol Use Standard Drinks/Week Comments Not Currently 0 (1 standard drink = 0.6 oz pur e alcohol) everyday for past week PHQ-2 Answer Date Recorded PHQ-2 Score 2 09/15/2019 Adolescent Education Answer Date Record ed Getting School Help Needed Not on file 06/23 Comments No Sex and Gender Information Value Date Recorded Sex Assigned at Not on file 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 Gender Identity Not on file Sexual Orientation Not on file Last Filed Vital Signs Vital Sign Reading Time Taken Comments Blood Pressure 131/93 07/05/2023 10:49 PM CDT Pulse 95 07/05/2023 10:51 PM CDT Temperature 37.1 C (98.8 F) 07/05/2023 10:49 PM CDT Respiratory Rate 17 07/05/2023 10:49 PM CDT Oxygen Saturation 100% 07/05/2023 10:51 PM CDT Inhaled Oxygen Concentration - - Weight 67.1 kg (148 lb) 07/09/2022 9:14 AM CDT Height 162.6 cm (5' 4) 07/09/2022 9:14 AM CDT Body Mass Index 25.4 07/09/2022 9:14 AM CDT Plan of Treatment Health Maintenance Due Date Last Done Comments ADVANCE CARE PLANNING 2003 ANNUAL REVIEW OF HM ORDERS 2003 DEPRESSION ACTION PLAN 2003 YEARLY PREVENTIVE VISIT 2006 HIV SCREENING 2018 MENINGITIS B IMMUNIZATION (1 of 2 - Standard) 2019 PHQ-9 03/15/2020 09/15/2019 HEPATITIS C SCREENING 2021 DTAP/TDAP/TD IMMUNIZATION (7 - Td or Tdap) 03/05/2024 03/05/2014, 05/04/2008, 09/10/2004, Additional history exists PAP 2024 COVID-19 Vaccine ( season) 2024 11/06/2021, 12/13/2020, 11/22/2020 INFLUENZA VACCINE (#1) 2024 2, 07/11/2021, 09/05/2019, Additional history exists ZOSTER IMMUNIZATION (1 of 2) 2053 HEPATITIS B IMMUNIZATION Completed 004, 2003, 2003 Pneumococcal Vaccine: Pediatrics (0 to 5 Years) and At-Risk Patients (6 to 49 Years) Aged Out 09/10/2004, 2003, 2003 No longer eligible based on patient's age to complete this topic HPV IMMUNIZATION Completed 04/05/2015, , 03/05/2014 MENINGITIS IMMUNIZATION Completed 10/31/2019, 06/22 CHLAMYDIA SCREENING Discontinued 11/28/2019, 8 Procedures Procedure Name Priority Date/Time Associated Diagnosis Comments CHLAMYDIA TRACHOMATIS PCR Routine 11/28/2019 2:15 PM CDT Suicidal ideation from Last 3 Months or Most Recently Relevant to Health Maintenance Results * Chlamydia trachomatis PCR (11/28/2019 2:15 PM CDT) Specimen Description Urine 11/28/2019 2:45 PM CDT [facility] Chlamydia Trachomatis PCR Negative NEG^Negat jackelin 11/29/2019 12:35 PM CDT [facility] Comment: Negative for C. trachomatis rRNA by insulation nozzleman mediated amplification. A negative result by insulation nozzleman mediated amplification does not preclude the presence of C. trachomatis infection because results are dependent on proper and adequate collection, absence of inhibitors, and sufficient rRNA to be detected. Urine specimen (specimen) 11/28/2019 2:15 PM CDT 11/28/2019 2:45 PM CDT Ila Madera APRN [facility] INSPECT[facility] - MICRO GENERAL ORDERABLES Final Result Performing Organization Address City/State/[facility] Co de Phone Number [facility] [address] [place] [address], [facility] [address] [place] [address] from Last 3 Months or Most Recently Relevant to Health Maintenance Insurance BCBS OUT OF STATE BCBS OUT OF STATE BCBS OUT OF STATE BCBS OUT OF STATE BCBS OUT OF STATE [place] [id number] * Guarantor: WHITNEY KAUR Account Type Relation to Patient Date of Phone Billing Address Medication Therapy Mother 1983 [address] [facility] [place] [address] Advance Directives For more information, please contact: [phone] * Full Code (Latest Code Status on File) Date Activated Date Inactivated Comments 11/24/2019 2:52 AM 12/04/2019 10:30 AM Minor Question Answer Comments Code status determined by: Other (please ebony t) * Full Code Date Activated Date Inactivated Comments 11/04/2019 3:59 PM 11/16/2019 12:17 PM Question Answer Comments Code status determined by: Unable to dis cuss and no AD/POLST on file; continue PREVIOUSLY ORDERED code status * Full Code Date Activated Date Inactivated Comments 09/07/2019 4:36 AM 09/11/2019 3:29 PM Question Answer Comments Code status determined by: Discussion with patie nt/legal decision maker * Full Code Date Activated Date Inactivated Comments 10/03/2017 1:15 AM 10/07/2017 6:06 PM Care Teams Air Sampler Relationship Specialty Start Date End Date Deshawn Hart PA-C [facility] [address] [place] [id number] PCP - General 11/23/19 Deshawn Hart PA-C [facility] [address] [place] [id number] Physician 10/06/17 Benita Alston, PhD [address] [place] [address] Psychologist Psychology 07/05/19 Kimberli Trevizo, [facility] [address] [place] [address] Licensed Mental Health 07/05/19 Shivani Batista MD [address] [place] [address] [phone] Resident Student in [facility] health care education/training program 07/05/19 Reddy Lamb MD [address] [place] [id number] programmer analyst health it 07/05/19 Lisette Bettencourt, [facility] [address] [place] [address] Pharmacist Pharmacist 07/05/19
== END 2024-11-10 19:24 | disposition left against medical advice (07) ==
PROVIDERS: Emergency Provider Emergency Medicine
DX: R30.9 Painful micturition, unspecified (principal); Z53.21 Procedure and treatment not carried out due to patient leaving prior to being seen by health care provider
CPT/HCPCS: 81001; 87086; 99281